=== PATIENT | female | born 1995 | race Caucasian/White ===

== ENCOUNTER 2017-03-23 02:19 | Emergency (ER) | payer BC, OTHER ==
[~2017-03-23] VITALS: Ht 160 cm; Wt 64.6 kg
[~2017-03-23 02:19] MED LIST: FLUD0.1T10 PO; MIRT15TA3 PO; NXM/40 PO; [UNRECOGNIZED DRUG - CODE] PO
[2017-03-23 02:29] VITALS: TEMP 36.8; O2SAT 98; Ht 160 cm; Wt 64.6 kg
[2017-03-23] MEDS ORDERED: BCPILLS PO (02:41)
--- NOTE | 2017-03-23 02:48 | EMERGENCY ROOM VISIT NOTE ---
History Report prepared by Cris: Nestor Monahan Under the Supervision of: Dr. Misty Pérez D.O. First contact with patient: 02:21 Chief Complaint: ALCOHOL OVERDOSE Stated Complaint: ALCOHOL OVERDOSE History of Present Illness The patient is a 21 year old female who presents to the Emergency Room with complaints of a sudden alcohol overdose that occurred prior to arrival. She states that she had one monkey boy, three [place] iced teas, and a eufemia artois. She reports that she experienced one episode of vomiting. Per EMS, the patient was brought into the ED because she was pulled over by the police after her friend, who was the designated waste collection driver, was driving without her headlights on. They report that once the waste collection driver was pulled over, all of the patients friends, except her, ran out of the car. The patient states that she does not typically drink due to her baseline low blood pressure and low blood sugar. 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 She states that she is allergic to Amoxicillin. The patient denies smoking, recent travel, and drug use. Source of History: patient Onset: prior to arrival Position: other (global) Quality: other (overdose) Timing: other (sudden) Modifying Factors (Worsening): other (alcohol) Associated Symptoms: + vomiting Review of Systems See HPI for pertinent positives & negatives. A total of 10 systems reviewed and were otherwise negative. Past Medical & Surgical Medical Problems: (1) Headache Family History Patient reports no known family medical history. Social History Alcohol Use: occasionally Marital Status: single Housing Status: lives with roommate Occupation Status: [employer] student Current/Historical Medications Scheduled Control Pills ( Control Pills), 1 TAB PO DAILY Allergies Coded Allergies: Amoxicillin (Verified Allergy, Unknown, hives, face swelling, 03/23/17) Physical Exam Vital Signs Date Time Temp Pulse Resp B/P (MAP) Pulse Ox O2 Delivery O2 Flow Rate FiO2 03/23/17 04:35 117 18 131/91 96 Room Air 03/23/17 02:29 98 Room Air 03/23/17 02:29 128 03/23/17 02:29 36.8 127 18 125/94 98 Room Air Physical Exam General: tearful, covered in vomit, smells of alcohol. HEENT: Head - normocephalic and atraumatic Pupils are 3 mm and are equal, round, and sluggishly reactive to light. Extraocular eye muscles are intact, and sclera are anicteric. Nose - moist nasal mucosa without discharge. Mouth - moist buccal mucosa. Oropharynx is nonerythematous and there is no tonsillar exudate or edema noted. Neck: Supple; no JVD, nuchal rigidity, cervical lymphadenopathy. Heart: Tachycardic. Regular and rhythm. There is a normal S1 and S2 with no murmurs, clicks, or gallops appreciated. Lungs: Clear to auscultation bilaterally with no wheezes, rales, or rhonchi. Abdomen: Soft, completely nontender, nondistended, with good bowel sounds. There are no palpable pulsatile masses or hepatosplenomegaly. There is no guarding, rigidity, or rebound noted. Extremities: No evidence of cyanosis, clubbing, or edema. There are easily palpable peripheral pulses. Skin: warm and dry with good turgor and no rashes. Medical Decision & Procedures Laboratory Results 03/23/17 02:31 Test 03/23/17 02:31 Anion Gap 4.0 mmol/L (3-11) Est Creatinine Clear Calc Drug Dose 119.1 ml/min Estimated GFR () 144.6 Estimated GFR (Non- 124.8 BUN/Creatinine Ratio 15.8 (10-20) Calcium Level 8.4 mg/dl (8.5-10.1) Ethyl Alcohol mg/dL 264.0 mg/dl (0-3) Laboratory results per my review. ED Course 0221: Past medical records reviewed. The patient was evaluated in room B03B. A complete history and physical exam was performed. Laboratory studies were drawn as above. The patient was observing the registered nurse cardiac telemetry and pulse oximeter. She was able to get up to the bathroom. 0342: Nursing informed me that they had an extensive discussion with the patient 's mother on the patient's medical history. 0423: I reevaluated the patient and she is awake and resting comfortably. I reviewed the lab results with her. She will be discharged around 0800 when she lottie up. Nursing is helping her ambulate to the bathroom. 0550: The patient is sleeping at this time. Her vitals are stable. She will be discharged around 8 AM when she is more sober. Medical Decision The patient is a 21 year old female who presents to the ED with complaints of a sudden alcohol overdose that occurred prior to arrival. Differential diagnosis includes: alcohol overdose, drug intoxication, head injury, hypoglycemia. Lab results showed: Alcohol 264, Glucose 103, Normal renal function. This is a 21-year-old female patient who ingested a significant amount of alcohol and was vomiting. She denies any trauma or any other drug use. She was cooperative throughout her stay here in the emergency department. I've encouraged the patient to avoid such excessive alcohol use in the future. Medication Reconcilliation Current Medication List: was personally reviewed by me Blood Pressure Screening Patient's blood pressure: Normal blood pressure Impression Primary Impression: Alcohol overdose Scribe Attestation The scribe's documentation has been prepared under my direction and personally reviewed by me in its entirety. I confirm that the note above accurately reflects all work, treatment, procedures, and medical decision making performed by me. Departure Information Dispostion Home / Self-Care Referrals [facility] (PCP) Forms HOME CARE DOCUMENTATION FORM, IMPORTANT VISIT INFORMATION Patient Instructions Alcohol Abuse - [facility], Alcohol Intoxication - [facility], ED Overdose Alcohol, [facility]: [employer] Students and Alcohol Related Visits, My [facility] Additional Instructions Avoid such excessive alcohol use in the future. Rest Take plenty of clear liquids Use tylenol for headache Problem Qualifiers Primary Impression: Alcohol overdose Encounter type: initial encounter Injury intent: accidental or unintentional Qualified Codes: T51.91XA - Toxic effect of unspecified alcohol , accidental (unintentional), initial encounter
[2017-03-23 02:59] LABS: BUN/CREATININE RATIO 15.8 (10-20); CALCIUM 8.4 mg/dl (8.5-10.1); CREATININE 0.67 mg/dl (0.60-1.20); POTASSIUM 3.4 mmol/L (3.5-5.1)
[2017-03-23 08:57] VITALS: BP 92/58; PULSE 100; O2SAT 98
== END 2017-03-23 09:22 | disposition home or self-care (01) ==
LOC: EDBD 02:19 → C.EDB 02:21
DX: T51.91XA Toxic effect of unspecified alcohol, accidental (unintentional), initial encounter (principal); X58.XXXA Exposure to other specified factors, initial encounter